=== PATIENT | male | born 1950 | race Caucasian/White ===

== ENCOUNTER 2024-11-08 06:31 | Inpatient (IN) | payer MEDICARE ==
[~2024-11-08] VITALS: Ht 175.3 cm; Wt 64.9 kg
[2024-11-08] MEDS ORDERED: ANESTHESIA TRAY IN PYXIS 1 EA TRAY MC ONE (07:07)
[2024-11-08] MEDS ORDERED: LIDOCAINE 2%-EPI 1:100,000 30 ML VIAL ONE (07:07)
[2024-11-08] MEDS ORDERED: dexaMETHasone SOD PHOSPHATE 1 ML ONE (07:08)
[2024-11-08] MEDS ORDERED: VANCOMYCIN 1 GM VIAL ONE (07:08)
[2024-11-08] MEDS ORDERED: ROCURONIUM BROMIDE 50 MG/5 ML ONE (07:18)
[2024-11-08] MEDS ORDERED: FENTANYL PF 250MCG/5ML AMPUL ONE (07:18)
[2024-11-08] MEDS ORDERED: SEVOFLURANE 250 ML BOTTLE IH ONE (09:24)
[2024-11-08] MEDS ORDERED: MIDAZOLAM HCL 2 MG/2ML VIAL ONE (10:30)
[2024-11-08] MEDS ORDERED: ONDANSETRON HCL/PF 4 MG/2 ML VIAL IV PRN (12:30)
[2024-11-08] MEDS ORDERED: HYDROMORPHONE 1 MG/1 ML DISP.SYRIN IV PRN (12:30)
[2024-11-08] MEDS ORDERED: METF-881 PO (13:09)
[2024-11-08] MEDS ORDERED: ATOR20TA PO (13:09)
[2024-11-08] MEDS ORDERED: TAMS-12 PO (13:09)
[2024-11-08] MEDS: ACETAMINOPHEN 325 MG TABLET PO PRN (14:00)
[2024-11-08] MEDS ORDERED: DEXTROSE 50%-WATER 50 ML DISP.SYRIN IV PRN (16:00)
[2024-11-08] MEDS ORDERED: BISACODYL (5 MG) 5 MG TABLET.DR PO PRN (16:00)
[2024-11-08] MEDS: BLOOD SUGAR DIAGNOSTIC 1 EACH STRIP IN SCH (17:15)
[2024-11-08] MEDS: IV NS 0.9% 1,000 ML IV PRN (17:31)
[2024-11-08] MEDS: VANCOMYCIN 1 GM in IV D5W 250ml IV SCH (19:50)
[2024-11-08 20:00] VITALS: BP 139/95; TEMP 99.1; O2SAT 97
[2024-11-08] MEDS: INSULIN REGULAR, HUMAN 100 UNIT/ML 3 ML VIAL SQ PRN (21:45)
[2024-11-08] MEDS: TAMSULOSIN 0.4 MG CAP.SR.24H PO SCH (22:01)
[2024-11-09] MEDS: HYDROCODONE/APAP 5/325MG TABLET PO PRN (06:08)
[2024-11-09 07:30] VITALS: BP 134/86; TEMP 97.9; O2SAT 96
[2024-11-09] MEDS: ATORVASTATIN 10 MG TABLET PO SCH (08:05)
[2024-11-09 10:00] VITALS: BP 138/67; TEMP 98.1; O2SAT 98
== END 2024-11-09 12:14 | disposition home or self-care (01) | DRG 908 ==
LOC: DS 06:31 → MED 11:51
PROC: 0NSR04Z Reposition Maxilla with Internal Fixation Device, Open Approach (ICD-10-PCS; 2024-11-08)
PROC: 0NST04Z Reposition Right Mandible with Internal Fixation Device, Open Approach (ICD-10-PCS; 2024-11-08)
PROC: 0NUV07Z Supplement Left Mandible with Autologous Tissue Substitute, Open Approach (ICD-10-PCS; 2024-11-08)
PROC: 0NUR07Z Supplement Maxilla with Autologous Tissue Substitute, Open Approach (ICD-10-PCS; 2024-11-08)
PROC: 0NUT07Z Supplement Right Mandible with Autologous Tissue Substitute, Open Approach (ICD-10-PCS; 2024-11-08)
PROC: 0N5V0ZZ Destruction of Left Mandible, Open Approach (ICD-10-PCS; 2024-11-08)
PROC: 0N5T0ZZ Destruction of Right Mandible, Open Approach (ICD-10-PCS; 2024-11-08)
PROC: 09UR07Z Supplement Left Maxillary Sinus with Autologous Tissue Substitute, Open Approach (ICD-10-PCS; 2024-11-08)
PROC: 09UQ07Z Supplement Right Maxillary Sinus with Autologous Tissue Substitute, Open Approach (ICD-10-PCS; 2024-11-08)
PROC: 0NST04Z Reposition Right Mandible with Internal Fixation Device, Open Approach (ICD-10-PCS; 2024-11-08)
PROC: 0N5R0ZZ Destruction of Maxilla, Open Approach (ICD-10-PCS; principal; 2024-11-08 07:30)
DX: T86.831 Bone graft failure (principal); S02.40CK Maxillary fracture, right side, subsequent encounter for fracture with nonunion; S02.69XK Fracture of mandible of other specified site, subsequent encounter for fracture with nonunion; T81.83XA Persistent postprocedural fistula, initial encounter; S02.40DK Maxillary fracture, left side, subsequent encounter for fracture with nonunion; Y83.8 Other surgical procedures as the cause of abnormal reaction of the patient, or of later complication, without mention of misadventure at the time of the procedure; M27.2 Inflammatory conditions of jaws; D16.4 Benign neoplasm of bones of skull and face; E11.9 Type 2 diabetes mellitus without complications; E78.5 Hyperlipidemia, unspecified; N40.0 Benign prostatic hyperplasia without lower urinary tract symptoms; Z82.49 Family history of ischemic heart disease and other diseases of the circulatory system; J32.0 Chronic maxillary sinusitis; Y83.2 Surgical operation with anastomosis, bypass or graft as the cause of abnormal reaction of the patient, or of later complication, without mention of misadventure at the time of the procedure; Y72.8 Miscellaneous otorhinolaryngological devices associated with adverse incidents, not elsewhere classified; X58.XXXD Exposure to other specified factors, subsequent encounter; Y92.009 Unspecified place in unspecified non-institutional (private) residence as the place of occurrence of the external cause; M60.88 Other myositis, other site
CPT/HCPCS: 82962-TC; 88305-TC; 88311-TC; 88312-TC; A4223; C1713; G0378; J0690; J1100; J1815; J2250; J2704; J3010; J3373; J3490; J7030; J7050; J7060